=== PATIENT | female | born 1950 | race Caucasian/White ===

== ENCOUNTER 2016-10-02 09:15 | Emergency (ER) | payer OTHER, MEDICARE ==
[~2016-10-02] VITALS: Ht 165.1 cm; Wt 65.5 kg
[2016-10-02 10:07] LABS: HEMATOCRIT 39.2 % (36.0-46.0); MCH 31.7 PG (29.0-34.0); MCHC 33.7 G/DL (30.0-36.0); MCV 94.2 FL (83-99); MEAN PLAT.VOLUME 11.8 uM^3 (9.5-12.4); PLATELET COUNT 207 K/uL (156-360); RBC DIS.WIDTH-CV 12.1 % (11.8-14.6); RBC DIS.WIDTH-SD 40.8 % (39-53); RED BLOOD COUNT 4.16 M/uL (3.80-5.20); WHITE BLOOD COUNT 14.6 K/uL (4.1-10.2)
[2016-10-02 10:07] LABS: ADD MIUA? YES; BILIRUBIN NEGATIVE; BLOOD LARGE; COLOR YELLOW ((YELLOW)); GLUCOSE (STRIP) NEGATIVE; KETONES NEGATIVE; LEUKOCYTES NEGATIVE; NITRITE NEGATIVE; PROTEIN (STRIP) 30; SPECIFIC GRAVITY 1.019 (1.000-1.030); UROBILINOGEN 0.2 MG/DL (0.2-1.0)
[2016-10-02 10:14] LABS: CHLORIDE 107 mEq/L (99-109); POTASSIUM 4.6 mEq/L (3.7-5.4); SODIUM 143 mEq/L (136-147)
[2016-10-02 10:16] LABS: GLUCOSE 148 mg/dL (70-99)
[2016-10-02 10:17] LABS: ANION GAP 11 MEQ/L (2-14)
[2016-10-02 10:18] LABS: TOTAL BILIRUBIN 0.8 mg/dL (0.0-1.0)
[2016-10-02 10:20] LABS: ALKALINE PHOSPHATASE 79 IU/L (3-129); GFR ESTIMATE (CALCULATED) > 59 mL/min/
[2016-10-02 10:21] LABS: UREA NITROGEN (BUN) 22 mg/dL (9-23)
[2016-10-02 10:42] LABS: BACTERIA RARE /HPF; EPITHELIAL CELLS RARE /HPF; MUCUS NONE SEEN /LPF; RED BLOOD CELLS 30-40 /HPF (0-5); UCUL ADDED? NO; WHITE BLOOD CELLS NONE SEEN /HPF (0-5)
[2016-10-02 10:43] LABS: AMORPHOUS URATES CRYSTALS 1+
[2016-10-02] MEDS ORDERED: FLOMAX0.4 MG PO (13:36)
[2016-10-02] MEDS ORDERED: PERCOCET 5/31 TABLET PO (13:36)
[2016-10-02] MEDS ORDERED: ZOFRAN ODT4 MG PO (13:36)
[2016-10-02] MEDS ORDERED: GLIMEPIRIDE1 MG PO (13:44)
[2016-10-02] MEDS ORDERED: LISINOPRIL5 MG PO (13:45)
[2016-10-02] MEDS ORDERED: ATORVASTATIN CA40 MG PO (13:45)
[2016-10-02 14:02] VITALS: BP 121/66
== END 2016-10-02 14:03 | disposition home or self-care (01) ==
LOC: EME 09:15
DX: N13.2 Hydronephrosis with renal and ureteral calculous obstruction (principal); R11.2 Nausea with vomiting, unspecified; R19.7 Diarrhea, unspecified; R30.0 Dysuria; E11.9 Type 2 diabetes mellitus without complications; E78.5 Hyperlipidemia, unspecified; Z87.891 Personal history of nicotine dependence
CPT/HCPCS: 74176; 80053; 81003; 85027; 93005; 99281; 99285; J1170; J2270; J2405; J3010; J7030; J7050